=== PATIENT | female | born 1990 | race Hispanic/Latino ===

== ENCOUNTER → 2018-07-08 | Outpatient (CLI) | payer OTHER | END | disposition home or self-care (01) | LOC: LAB 00:53 | DX: R76.8 Other specified abnormal immunological findings in serum (principal) | CPT/HCPCS: 36415; 85651; 86140; 86160; 86215; 86235; 86376; 86431 ==

== ENCOUNTER → 2018-09-08 | Outpatient (CLI) | payer OTHER ==
[2018-09-09 06:54] LABS: RAPID PLASMA REAGIN NONREACTIVE (NONREACTIVE)
[2018-09-09 07:23] LABS: HEPATITIS Bs ANTIGEN SCREEN P Negative (Negative)
== END | disposition home or self-care (01) ==
LOC: LAB 09:56
PROVIDERS: ATTEND Obstetrics & Gynecology
DX: Z11.3 Encounter for screening for infections with a predominantly sexual mode of transmission (principal)
CPT/HCPCS: 36415; 86592; 86695; 86701; 87340; 87390

== ENCOUNTER 2019-01-20 07:21 | Emergency (ER) | payer OTHER | END 2019-01-20 08:55 | disposition home or self-care (01) | LOC: EDH 07:21 | DX: S00.83XA Contusion of other part of head, initial encounter (principal); M79.7 Fibromyalgia; Z88.6 Allergy status to analgesic agent; Z98.890 Other specified postprocedural states; Y04.0XXA Assault by unarmed brawl or fight, initial encounter; Y93.89 Activity, other specified; Y92.69 Other specified industrial and construction area as the place of occurrence of the external cause; Y99.8 Other external cause status | CPT/HCPCS: 70486 ==